=== PATIENT | male | born 1985 | race Caucasian/White ===

== ENCOUNTER 2021-09-25 16:10 | Emergency (ER) | payer SELFPAY ==
[~2021-09-25] VITALS: Ht 157.5 cm; Wt 54.4 kg
[2021-09-25 16:14] VITALS: BP 118/90
--- NOTE | 2021-09-25 16:22 | NUR ---
PA HANDY EXAMINING PT
[2021-09-25] MEDS ORDERED: LIDOCAINE MPF 1% 10 MG/ML VIAL INJ ONE ×2 (16:25→16:35)
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
[2021-09-25] MEDS ORDERED: BACITRACIN OINT 500 UNITS/GM PKT TP ONE ×2 (16:43→16:45)
[2021-09-25] MEDS ORDERED: CEPH-588 PO (17:02)
[2021-09-25] MEDS ORDERED: IBUP-2213 PO (17:02)
[2021-09-25] MEDS ORDERED: BACI1PAC6 TP (17:02)
[2021-09-25 17:05] VITALS: BP 118/90
--- NOTE | 2021-09-25 17:05 | NUR ---
Patient discharged with v/s stable. Written and verbal after care instructions given and explained. Patient alert, oriented and verbalized understanding of instructions. Ambulatory with steady gait. All questions addressed prior to discharge. ID band removed. Patient advised to follow up with PMD. Rx of KEFLEX, IBUPROFEN, AND BACITRACIN given. Patient educated on indication of medication including possible reaction and side effects. Opportunity to ask questions provided and answered.
== END 2021-09-25 17:05 | disposition home or self-care (01) ==
LOC: MED 16:10
DX: S61.512A Laceration without foreign body of left wrist, initial encounter (principal); F10.129 Alcohol abuse with intoxication, unspecified; Z79.899 Other long term (current) drug therapy; V87.8XXA Person injured in other specified noncollision transport accidents involving motor vehicle (traffic), initial encounter; Y93.89 Activity, other specified; Y92.89 Other specified places as the place of occurrence of the external cause; Y99.8 Other external cause status
CPT/HCPCS: 90471; 90715; 99283; J2001

== ENCOUNTER 2021-09-28 07:35 | Emergency (ER) | payer SELFPAY ==
[~2021-09-28 07:35] MED LIST: BACI1PAC6 TP; CEPH-588 PO; IBUP-2213 PO
--- NOTE | 2021-09-28 07:55 | NUR ---
[id number]. NO SHOW.
--- NOTE | 2021-09-28 08:15 | NUR ---
CALLED [phone]: NO LONGER SERVICE. PATIENT LEFT WITHOUT BEING SEEN BY DR. GOODEN. NO FURTHER CARE PROVIDED FOR PATIENT.
== END 2021-09-28 07:55 | disposition left against medical advice (07) ==
LOC: MED 07:35
DX: Z48.00 Encounter for change or removal of nonsurgical wound dressing (principal); Z53.21 Procedure and treatment not carried out due to patient leaving prior to being seen by health care provider

== ENCOUNTER 2021-09-28 17:22 | Emergency (ER) | payer SELFPAY ==
[~2021-09-28] VITALS: Ht 162.6 cm; Wt 59.0 kg
[2021-09-28 18:16] VITALS: BP 110/67
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
[2021-09-28] MEDS ORDERED: BACITRACIN OINT 500 UNITS/GM PKT TP ONE (18:26)
[2021-09-28] MEDS ORDERED: cephALEXin 500 MG CAP PO ONE (18:30)
[2021-09-28 18:52] VITALS: BP 110/67
--- NOTE | 2021-09-28 18:52 | NUR ---
Patient discharged with v/s stable. Written and verbal after care instructions given and explained. Patient verbalized understanding. Ambulatory with steady gait. All questions addressed prior to discharge. Advised to follow up with PMD.
== END 2021-09-28 18:52 | disposition home or self-care (01) ==
LOC: MED 17:22
DX: S61.512D Laceration without foreign body of left wrist, subsequent encounter (principal); Z48.00 Encounter for change or removal of nonsurgical wound dressing; X58.XXXD Exposure to other specified factors, subsequent encounter
CPT/HCPCS: 99283